=== PATIENT | female | born 1990 | race Caucasian/White ===

== ENCOUNTER 2017-02-28 21:56 | Emergency (ER) | payer OTHER ==
[~2017-02-28] VITALS: Ht 177.8 cm; Wt 94.8 kg
[~2017-02-28 21:56] MED LIST: ADVAI100I PO; CONTOUR1 XX; GLUC1000 PO; HYDRO25 PO; INSU-174; LANTUS2P SC; LINA290C PO; LITH450 PO; NOVOLOGP2 SQ; NOVOLOGSS SQ; NOVORP2 SQ; ONDAN4 PO; ONETMIS7; OXCA300 PO; PRAZ1 PO; PRED10 PO; QUET300 PO; ZOFR4TAB3 SL
[2017-02-28 22:07] VITALS: BP 134/69; PULSE 82; RESP 18; TEMP 98; O2SAT 98
--- NOTE | 2017-02-28 22:24 | PD ---
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 Patient reports history of IBS. Symptoms started today, and have progressively been worsening throughout the day. She has been following with an [employer] [employer], and has had an ultrasound that shows an IUP. She denies vaginal bleeding or discharge. History of cholecystectomy. No other abdominal surgeries. No vomiting. PFSH Past Medical History Asthma: Yes Bipolar Disorder: Yes Anxiety: Yes Depression: Yes Diabetes: Yes Respiratory: Yes Schizophrenia: Yes ?: LMP: 12/09/16 Dilation and Curettage (D&C): Yes (2013) Past Surgical History Cholecystectomy: Yes Social History Alcohol Use: Yes (RARELY) Tobacco Use: Yes (10/11 PPD) Substance Use: Yes Allergies-Medications (Allergen,Severity, Reaction): Coded Allergies: Depakote (Verified Allergy, Severe, AGGITATION, 02/28/17) Geodon (Verified Allergy, Severe, Hives, 02/04/16) Zoloft (Verified Allergy, Severe, Hives, 02/04/16) Uncoded Allergies: INVOKANA (Allergy, Severe, Hives, 02/04/16) Reported Meds & Prescriptions Reported Meds & Active Scripts Active Reported [place] ( Vitamin) 1 Tab Tab 1 Tab PO DAILY Valium (Diazepam) 5 Mg Tab 5 Mg PO DAILY PRN Novolin N Inj (Insulin Human NPH) 1,000 Unit/10 Ml Vial 10 Units SQ DAILY [place] Carbonate ER ([place] Carbonate) 450 Mg Tab 450 Mg PO BID Glimepiride 4 Mg Tab 4 Mg PO DAILY Take with breakfast or first main meal Metformin (Metformin HCl) 1,000 Mg Tab 1,000 Mg PO DAILY With a meal Review of Systems Except as stated in HPI: all other systems reviewed are Neg Physical Exam Narrative GENERAL: Well-developed, well-nourished, no acute distress. SKIN: Focused skin assessment warm/dry. HEAD: Atraumatic. Normocephalic. EYES: Pupils equal and round. No scleral icterus. No injection or drainage. ENT: Mucous membranes pink and moist. NECK: Trachea midline. No JVD. CARDIOVASCULAR: Regular rate and rhythm. RESPIRATORY: No accessory muscle use. Clear to auscultation. Breath sounds equal bilaterally. GASTROINTESTINAL: Abdomen soft, nondistended. Mild suprapubic tenderness without peritoneal signs. Rest of abdomen is soft and nontender. Normal bowel sounds. MUSCULOSKELETAL: No obvious deformities. No clubbing. No cyanosis. No edema. NEUROLOGICAL: Awake and alert. No obvious cranial nerve deficits. Motor grossly within normal limits. Normal speech. PSYCHIATRIC: Appropriate mood and affect; insight and judgment normal. Data Data Last Documented VS Vital Signs Date Time Temp Pulse Resp B/P Pulse Ox O2 Delivery O2 Flow Rate FiO2 02/28/17 22:18 82 18 02/28/17 22:07 98.0 134/69 98 Orders Urinalysis - C+S If Indicated (02/28/17 22:20) Labs Laboratory Tests Test 02/28/17 22:03 Urine Color STRAW Urine Turbidity CLEAR Urine pH 6.5 Urine Specific [place] 1.008 Urine Protein NEG mg/dL Urine Glucose (UA) NEG mg/dL Urine Ketones NEG mg/dL Urine Occult Blood NEG Urine Nitrite NEG Urine Bilirubin NEG Urine Leukocyte Esterase NEG Urine Squamous Epithelial 0-5 /hpf Cells Urine Bacteria FEW /hpf Microscopic Urinalysis Comment CULT NOT INDICATED MDM Medical Decision Making Medical Screen Exam Complete: Yes Emergency Medical Condition: Yes Differential Diagnosis Pelvic cramping, UTI, cystitis, ectopic , IBS, appendicitis unlikely, colitis, Narrative Course Vital signs show heart rate 82, blood pressure 134/69, pulse ox 98% on room air , oral temp of 98F. Patient is most concerned about the possibility of having a miscarriage, as this is her fourth with 3 prior miscarriages. Bedside transabdominal ultrasound was performed by me and shows an IUP with a heart rate of 174 bpm. Patient seems very reassured. She does have some mild suprapubic tenderness. She denies vaginal bleeding or discharge. I do not believe that there is an acute surgical process to warrant further imaging at this time. UA shows few bacteria. The patient be started on Macrobid. I believe that the patient is stable for discharge home with outpatient follow- up with her [employer] doctor this week. She has an appointment for this Tuesday in 2 days. She was informed on when to return to the emergency department patient verbalizes understanding and agreement with plan. Procedures Procedure Narrative Bedside transabdominal ultrasound: Using the curvilinear ultrasound probe, a bedside transabdominal ultrasound was performed by me and shows an IUP with heart beat 174 bpm. Diagnosis Primary Impression: Bacteriuria during Additional Impression: Abdominal pain Qualified Code: R10.9 - Abdominal pain, unspecified location Referrals: Account Advisor 2 days Additional Instructions: Follow-up with your [employer] doctor this week. Return to the emergency department for worsening symptoms or any other concerns. Scripts Nitrofurantoin Monohydrate Macrocrystals (Macrobid)100 Mg [id number] Mg PO BID 7 Days Ref 0 Prov:Sixto Romano MD 02/28/17 Disposition: 01 DISCHARGE HOME Condition: Stable Sixto Romano MD February 28, 2017 22:24
[2017-02-28] MEDS ORDERED: NOVONP2 SQ (22:32)
[2017-02-28] MEDS ORDERED: METF1000 PO (22:32)
[2017-02-28] MEDS ORDERED: LITH450T PO (22:32)
[2017-02-28] MEDS ORDERED: CALNTAB PO (22:32)
[2017-02-28] MEDS ORDERED: GLIM4TAB PO (22:32)
[2017-02-28] MEDS ORDERED: DIAZ5 PO (22:32)
[2017-02-28 22:34] LABS: BLOOD, URINE NEG (NEG); GLUCOSE,URINE NEG (NEG); KETONE, URINE NEG (NEG); NITRITE,URINE NEG (NEG); PH, URINE 6.5 (5.0-8.5)
[2017-02-28 22:43] LABS: BACTERIA, URINE FEW /hpf; SQUAMOUS EPITHELIAL CELL URINE 0-5 /hpf (0-5); URINE COLOR STRAW (YELLW/STRAW)
[2017-02-28 22:44] LABS: COMMENT (UR) CULT NOT INDICATED; CULTURE IF INDICATED CULT NOT INDICATED
[2017-02-28] MEDS ORDERED: MACR100C2 PO (22:50)
[2017-02-28] MEDS ORDERED: NITROFURANTOIN MONOHYD MACROCR 100 MG CAP PO ONE (23:00)
[2017-02-28 23:05] VITALS: BP 119/66; PULSE 68; RESP 16; O2SAT 98
== END 2017-02-28 23:08 | disposition home or self-care (01) ==
LOC: PHED 21:56
DX: O23.41 Unspecified infection of urinary tract in pregnancy, first trimester (principal); Z3A.12 12 weeks gestation of pregnancy
CPT/HCPCS: 81001; 99284

== ENCOUNTER 2018-06-30 15:16 | Inpatient (IN) ==
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
[2018-06-30 18:59] LABS: Baso # (Auto) 0.1 th/mm3 (0.0-0.2); Baso % (Auto) 0.4 % (0.0-2.0); Eos # (Auto) 0.2 th/mm3 (0.0-0.4); Eos % (Auto) 1.7 % (0.0-4.0); Hematocrit 41.6 % (35.0-46.0); Hemoglobin 14.4 gm/dL (11.6-15.3); Lymph # (Auto) 3.6 th/mm3 (1.0-4.8); Lymph % (Auto) 30.4 % (9.0-44.0); Mean Corpuscular HGB Conc 34.7 % (32.0-36.0); Mean Corpuscular Hemoglobin 31.7 pg (27.0-34.0); Mean Corpuscular Volume 91.3 fL (80.0-100.0); Mean Platelet Volume 9.4 fL (7.0-11.0); Mono # (Auto) 0.7 th/mm3 (0.0-0.9); Mono % (Auto) 6.1 % (0.0-8.0); Neut # (Auto) 7.3 th/mm3 (1.8-7.7); Neut % (Auto) 61.4 % (16.0-70.0); Platelet Count 228 th/mm3 (150-450); Red Blood Count 4.56 mil/mm3 (4.00-5.30); Red Cell Distribution Width 13.3 % (11.6-17.2); White Blood Count 11.9 th/mm3 (4.0-11.0)
[2018-06-30 19:21] LABS: Albumin 3.7 g/dL (3.4-5.0); Anion Gap 11 meq/L (5-15); Blood Urea Nitrogen 11 mg/dL (7-18); Calcium 8.8 mg/dL (8.5-10.1); Carbon Dioxide 20.2 meq/L (21.0-32.0); Chloride 106 meq/L (98-107); Glomerular Filtration Rate 85 mL/min (>89); Glucose,Random 170 mg/dL (74-106); Potassium 3.6 meq/L (3.5-5.1); Sodium 137 meq/L (136-145)
[2018-06-30 19:22] LABS: Aspartate Aminotransferase 14 U/L (15-37)
[2018-06-30 19:33] LABS: Alanine Aminotransferase 32 U/L (10-53); Alkaline Phosphatase 63 U/L (45-117); Thyroid Stimulating Hormone 0.625 uIU/mL (0.358-3.740); Total Protein 7.1 g/dL (6.4-8.2)
[2018-06-30 19:44] LABS: Amphetamine Screen,Urine Neg (Neg); Barbiturate Screen,Urine Neg (Neg); Cannabinoid Screen,Urine Neg (Neg); Cocaine Screen,Urine Neg (Neg)
[2018-06-30 19:51] LABS: Opiate Screen,Urine Neg (Neg)
[2018-07-01 09:27] LABS: Bilirubin,Urine Negative (Negative); Color,Urine Yellow (Yellw/Straw); Glucose,Urine (UA) Negative (Negative); Leukocyte Esterase,Urine Negative (Negative); Nitrite,Urine Negative (Negative); Urobilinogen,Urine 0.2 mg/dL (Less than 2)
[2018-07-01 09:32] LABS: Clarity,Urine Hazy (Clear)
[2018-07-01 09:34] LABS: Amorphous Sediment,Urine Rare /hpf; Bacteria,Urine Moderate /hpf; Mucus,Urine Moderate /lpf (Occasional); Squamous Epithelial Cell,Urine 6 /hpf (0-5)
[2018-07-01] MEDS ORDERED: Glimepiride 4 MG Tablet PO ONE (10:26)
[2018-07-01] MEDS ORDERED: Acetaminophen 325 MG Tablet PO ONE (12:55)
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
[2018-07-01] MEDS ORDERED: Aluminum/Magnesium/Simethacone Susp 30 ML UDC PO PRN (16:15)
[2018-07-01] MEDS ORDERED: Glimepiride 4 MG Tablet PO SCH (16:30)
[2018-07-01] MEDS ORDERED: Dextrose 50% in Water 50 ML Vial IV.PUSH PRN (20:35)
[2018-07-01] MEDS ORDERED: Non-Formulary Drug (Metformin [Metformin] 1,000 MG) PO SCH (21:00)
[2018-07-01] MEDS: Insulin NovoLOG Aspart Correctional Sugar Inj SQ SCH (22:02)
[2018-07-01] MEDS: Senna/Docusate Sodium 8.6/50 MG Tablet PO SCH (22:04)
[2018-07-02] MEDS: Insulin NovoLOG Aspart Correctional Sugar Inj SQ SCH ×5 (03:53→21:03)
[2018-07-02 08:52] LABS: Blood Urea Nitrogen 10 mg/dL (7-18); Calcium 8.7 mg/dL (8.5-10.1); Carbon Dioxide 22.7 meq/L (21.0-32.0); Cholesterol 192 mg/dL (120-200); Glomerular Filtration Rate Greater Than 89 mL/min (>89); Glucose,Random 236 mg/dL (74-106); Triglycerides 511 mg/dL (42-150)
[2018-07-02 09:01] LABS: Anion Gap 9 meq/L (5-15); Chloride 103 meq/L (98-107); Potassium 3.9 meq/L (3.5-5.1); Sodium 135 meq/L (136-145)
[2018-07-02 09:04] LABS: Chol/HDL Ratio 7.93 Ratio; HDL Cholesterol 24.2 mg/dL (40.0-60.0); Thyroid Stimulating Hormone 0.533 uIU/mL (0.358-3.740)
[2018-07-02] MEDS: Senna/Docusate Sodium 8.6/50 MG Tablet PO SCH ×2 (09:21→21:07)
[2018-07-02] MEDS: Glimepiride 4 MG Tablet PO SCH (09:22)
[2018-07-02] MEDS: diazePAM 5 MG Tablet PO SCH ×2 (09:23→11:22)
[2018-07-02] MEDS: Acetaminophen 325 MG Tablet PO PRN (11:23)
--- NOTE | 2018-07-02 11:56 | ECG ---
Date Performed: 07/02/2018 Time Performed: 09:43:43 PTAGE: 27 years EKG: Sinus rhythm NORMAL ECG Since the PREVIOUS TRACING , no significant change noted PREVIOUS TRACIN05/31/2018 11.21 DOCTOR: Paris Bower Interpretating Date/Time 07/05/2018 07:48:34
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
[2018-07-02 12:32] LABS: Hemoglobin A1c 8.4 % (4.3-6.0)
--- NOTE | 2018-07-02 16:53 | P.CONIM ---
History of Present Illness Service: [facility] Consult date: 07/02/18 Reason for Consult: medical management Primary Care Provider: Ridge Torres MD Chief Complaint: shortness of breath History of Present Illness: This is a pleasant 27 years old female with past medical history of asthma, diabetes, IBS, trigeminal neuralgia, schizophrenia, bipolar, PTSD, suicidal ideation and, history of drug overdose in 2008 for Depakote. Patient presented to the emergency department voluntarily for psychiatric evaluation, stated that she is having some suicidal thoughts and plan to "walk in front of a bus". She stated she attempted suicide in July 2009 by overdosing on Depakote and stated that he also does not work. Patient seen and evaluated sitting in his and her bedside, seems calm and cooperative, answers all the questions appropriately. Patient admitted at this time due to her thoughts of wanting to hurt others, and having some manic and unstable moods. Patient was admitted in the psychiatric department for evaluation and treatment. Medical team was consulted for medical management. Patient complains of some shortness of breath, states that she had a history of asthma and was using an inhaler, stated she was she woke up gasping for breath. No requesting for inhaler. Discussed with nursing. Patient denies any headache or dizziness, denies any chest pain or palpitation, denies any abdominal pain, nausea or vomiting, denies any diarrhea or constipation at this time although states that she had a history of IBS. Nurse discussed patient's complaint of burning on her groin site, patient stated that she had a blister that popped, states that she had a history of breath but denies any STDs. Patient also refused to get the groin area evaluated and seen. Patient stated it is her period today and it is kind a heavy so she do not want anything to look down there. Patient explained that she always have this blister coming and going all over her body, sometimes in the armpit or at the back of her neck. Patient also discussed her history of diabetes and was taking insulin, metformin, and glyburide at home. Patient denies any fever or chills. She denies any other complaints at this time. Review of Systems All other systems reviewed negative except as stated in HPI PMFSH - History History Provided By: Patient - Medical History Medical History: Medical History (Last Reviewed 07/02/18 @ 16:49 by BRANDIN Wren) Asthma Bipolar 1 disorder Diabetes IBS (irritable bowel syndrome) Miscarriage PTSD (post-traumatic stress disorder) Schizophrenia - Surgical History Surgical History: Surgical History (Last Reviewed 07/02/18 @ 16:49 by BRANDIN Wren) History of dilatation and curettage Hx of cholecystectomy Previous section - Social History I have reviewed the patient's Social History: Yes - Tobacco History Second Hand Smoke Exposure: Yes Tobacco Use In Past 30 Days: Yes Smoking Status: Heavy tobacco smoker Tobacco Type: Cigarettes - Alcohol History How Often Do You Have a Drink Containing Alcohol: Monthly or less - Substance Use History Substance History: Past History - Substance Use Type Marijuana Status: Active Route Used: Inhalation Reason for Use: Calm Down LSD, Mushrooms Status: Sustained Remission Route Used: By Mouth Reason for Use: Get High Comment: Stated she used from 11 yro to 19 yro Crack/Cocaine Status: Sustained Remission Route Used: Inhalation Reason for Use: Get High Comment: Patient has not used since 2011 Patient was in residential program in February 2012 for substance issues - Travel History Recent Travel in the [place] Within the Last 8 Weeks: No Recent Travel Out of the Country Within the Last 8 Weeks: No - Immunization History Tetanus Immunization: Unsure Hx Influenza Vaccine This Season: No Medications and Allergies Active Medications: Active Medications Acetaminophen (Tylenol) 650 mg PO Q4H PRN PRN Reason: PAIN 1-10 AND/OR FEVER >101F Last Admin: 07/02/18 11:23 Dose: 650 mg Al Hydrox/Mg Hydrox/Simethicone (Mag-Al Plus Susp Liq) 30 ml PO Q6H PRN PRN Reason: DYSPEPSIA Al Hydroxide/Mg Hydroxide (Milk Of Magnesia Liq) 30 ml PO Q12H PRN PRN Reason: Mild Constipation Albuterol (Ventolin Hfa Inh) 2 puff INH Q4H PRN PRN Reason: sob Cetirizine HCl (Zyrtec) 10 mg PO HS DENISSE Dextrose (D50w Vial) 50 ml IV.PUSH UNSCH PRN PRN Reason: PER HYPOGLYCEMIA PROTOCOL Diazepam (Valium) 5 mg PO DAILY DENISSE Last Admin: 07/02/18 11:22 Dose: 5 mg Fluticasone Propionate (Flonase Nasal [place]) 2 spray NASAL DAILY [facility] Fluticasone/Vilanterol (Breo Ellipta 100/25 Mcg Inh) 1 puff INH DAILY [facility] Glimepiride (Amaryl) 4 mg PO DAILY@0800 [facility] Last Admin: 07/02/18 09:22 Dose: 4 mg Glucagon (Glucagon Inj) 1 mg OTHER PRN PRN PRN Reason: for Hypoglycemia Protocol Insulin Aspart (Novolog Insulin [place] Sugar Inj) 0 unit SQ ACHS AND 3AM DENISSE; Protocol Last Admin: 07/02/18 11:45 Dose: 5 unit Riva Carbonate (Eskalith Sr) 600 mg PO BID [facility] Metformin HCl (Glucophage) 1,000 mg PO BIDPC [facility] Last Admin: 07/02/18 09:13 Dose: 1,000 mg Nicotine (Habitrol 21 Mg Patch.24 Hr) 1 patch T-DERMAL DAILY [facility] Last Admin: 07/02/18 11:47 Dose: 1 patch Patch Removal (Remove Old Patch) 1 each T-DERMAL HS [facility] Senna/Docusate Sodium ([place]-Colace) 1 tab PO BID [facility] Last Admin: 07/02/18 09:21 Dose: 1 tab Allergies Allergy/AdvReac Type Severity Reaction Status Date / Time divalproex sodium Allergy Severe AGGITATION Verified 06/30/18 19:09 sertraline Allergy Severe Hives Verified 06/30/18 19:09 ziprasidone Allergy Severe Hives Verified 06/30/18 19:09 canagliflozin [From Invokana] Allergy Rash Verified 06/30/18 19:09 Home Medications Medication Instructions Recorded Confirmed Type diazepam [Valium] 5 mg PO DAILY 06/30/18 06/30/18 History gabapentin 06/30/18 History glimepiride 4 mg PO QAM 06/30/18 06/30/18 History lithium carbonate 450 mg PO BID 06/30/18 06/30/18 History metformin 1,000 mg PO BID 06/30/18 06/30/18 History ziprasidone HCl [Geodon] 80 mg PO BID 06/30/18 06/30/18 History insulin NPH isoph U-100 human 15 unit SUB-Q BID 07/01/18 07/01/18 History [Novolin N NPH U-100 Insulin] insulin regular human [Humulin R 10 unit SUB-Q BID 07/01/18 07/01/18 History Regular U-100 Insuln] Exam Vital signs: Vital Signs 07/02/18 05:31 Temperature 97.5 F L Pulse Rate 88 Respiratory Rate 18 Blood Pressure 121/56 L Pulse Oximetry 97 Narrative: GENERAL: Heavyset female, well-developed, well-nourished, alert and oriented 3, in no apparent distress SKIN: Warm and dry. HEAD: Atraumatic. Normocephalic. EYES: Pupils equal and round. No scleral icterus. No injection or drainage. ENT: No nasal bleeding or discharge. Mucous membranes pink and moist. NECK: Trachea midline. No JVD. CARDIOVASCULAR: Regular rate and rhythm. RESPIRATORY: No accessory muscle use. Clear to auscultation. Breath sounds equal bilaterally. GASTROINTESTINAL: Abdomen obese soft, non-tender, nondistended. Hepatic and splenic margins not palpable. MUSCULOSKELETAL: Extremities without clubbing, cyanosis, or edema. No obvious deformities. NEUROLOGICAL: Awake and alert. No obvious cranial nerve deficits. Motor grossly within normal limits. Five out of 5 muscle strength in the arms and legs. Normal speech. PSYCHIATRIC: Appropriate mood and affect; insight and judgment unreliable. Cooperative Results - Labs CBC & Chem 7: 06/30/18 18:50 07/02/18 08:07 Labs: Laboratory Results - last 24 hr 07/01/18 07/01/18 07/01/18 16:00 16:30 19:18 Sodium Potassium Chloride Carbon Dioxide Anion Gap BUN Creatinine Estimated GFR POC Glucose 245 H 179 H Random Glucose Hemoglobin A1c Calcium Triglycerides Cholesterol LDL Cholesterol, Calc HDL Cholesterol Cholesterol/HDL Ratio TSH Riva 0.3 L 07/01/18 07/02/18 07/02/18 21:46 03:04 06:33 Sodium Potassium Chloride Carbon Dioxide Anion Gap BUN Creatinine Estimated GFR POC Glucose 346 H 235 H 217 H Random Glucose Hemoglobin A1c Calcium Triglycerides Cholesterol LDL Cholesterol, Calc HDL Cholesterol Cholesterol/HDL Ratio TSH Riva 07/02/18 07/02/18 07/02/18 08:01 08:07 08:10 Sodium 135 L Potassium 3.9 Chloride 103 Carbon Dioxide 22.7 Anion Gap 9 BUN 10 Creatinine 0.72 Estimated GFR Greater than 89 POC Glucose 244 H Random Glucose 236 H Hemoglobin A1c 8.4 H Calcium 8.7 Triglycerides 511 H Cholesterol 192 LDL Cholesterol, Calc HDL Cholesterol 24.2 L Cholesterol/HDL Ratio 7.93 TSH 0.533 Riva 07/02/18 07/02/18 11:21 14:18 Sodium Potassium Chloride Carbon Dioxide Anion Gap BUN Creatinine Estimated GFR POC Glucose 269 H 243 H Random Glucose Hemoglobin A1c Calcium Triglycerides Cholesterol LDL Cholesterol, Calc HDL Cholesterol Cholesterol/HDL Ratio TSH Riva Assessment and Plan - Assessment (1) Diabetes mellitus type 2 in obese Code(s): E11.69 - Type 2 diabetes mellitus with other specified complication; E66.9 - Obesity, unspecified Status: Acute (2) Asthma Code(s): J45.909 - Unspecified asthma, uncomplicated Status: Acute (3) Tobacco dependence Code(s): F17.200 - Nicotine dependence, unspecified, uncomplicated Status: Acute (4) IBS (irritable bowel syndrome) Code(s): K58.9 - Irritable bowel syndrome without diarrhea Status: Acute (5) Schizoaffective disorder, bipolar type Code(s): F25.0 - Schizoaffective disorder, bipolar type Status: Acute (6) PTSD (post-traumatic stress disorder) Code(s): F43.10 - Post-traumatic stress disorder, unspecified Status: Acute - Plan This is a pleasant 27 years old female with past medical history of asthma, diabetes, IBS, trigeminal neuralgia, schizophrenia, bipolar, PTSD, suicidal ideation and, history of drug overdose in 2008 for Depakote. Patient presented to the emergency department voluntarily for psychiatric evaluation, stated that she is having some suicidal thoughts and plan to "walk in front of a bus". She stated she attempted suicide in July 2009 by overdosing on Depakote and stated that he also does not work. Patient seen and evaluated sitting in his and her bedside, seems calm and cooperative, answers all the questions appropriately. Patient admitted at this time due to her thoughts of wanting to hurt others, and having some manic and unstable moods. Patient was admitted in the psychiatric department for evaluation and treatment. Medical team was consulted for medical management. Asthma Unspecified asthma, uncomplicated, Acute on chronic -Started on albuterol inhaler -Start on Breo, equivalent for Advair -Monitor respiratory status Diabetes mellitus type 2 in obese Type 2 diabetes mellitus with other specified complication; with Obesity, Acute on chronic -monitor blood glucose with Accu checks AC and HS -cover with Insulin Aspart sliding scale -continue home medications, metformin and glimepiride -hemoglobin A1c 8.4 -diabetic diet Hypertriglyceridemia, newly diagnosed/unknown history Likely related to uncontrolled diabetes/elevated blood sugar/obesity -Check liver function panel -Education on weight loss, lifestyle modification, diet, avoidance of concentrated sugars, alcohol, smoking cessation and strict glycemic control Postnasal drip -Add cetirizine and fluticasone spray -Monitor response Tobacco dependence Nicotine dependence, unspecified, uncomplicated, Acute -Start on nicotine patch for nicotine withdrawal this patient is a heavy smoker -Counseling on tobacco cessation IBS (irritable bowel syndrome) Irritable bowel syndrome without diarrhea, Acute on chronic -Monitor signs and symptoms Schizoaffective disorder, bipolar type/ PTSD (post-traumatic stress disorder) Acute on chronic - management by the Psychiatric Team DVT prophylaxis: Ambulatory Asthma Status: Acute Plan: Bronchodilator, Steroid taper PO Review home meds CXR (2) DM2 (diabetes mellitus, type 2) Status: Acute Plan: Home medications reviewed with patient Lantus 25 units at bedtime, metformin 1000 mg twice daily, Novolog 2 units with meals in addition to sliding scale Med list clarified Patient also recently on prednisone which may have even more hyperglycemia. This was given recently because of her trigeminal neuralgia We'll follow along closely to adjust as indicated based on glucose monitoring (3) Schizoaffective disorder Status: Acute Plan: Continue management as per psychiatry (patient recently on steroid- sparing which may have also exacerbated her psychiatric status, and personally because of her wheezing she will need to resume taking his) Code Status: Full code Discussed Condition With: Patient and nurse
[2018-07-02 18:01] LABS: Albumin 3.4 g/dL (3.4-5.0)
[2018-07-02 18:03] LABS: Total Protein 6.8 g/dL (6.4-8.2)
[2018-07-03] MEDS: Insulin NovoLOG Aspart Correctional Sugar Inj SQ SCH ×5 (03:06→20:34)
[2018-07-03 06:53] LABS: Anion Gap 9 meq/L (5-15); Blood Urea Nitrogen 12 mg/dL (7-18); Carbon Dioxide 23.3 meq/L (21.0-32.0); Chloride 106 meq/L (98-107); Glomerular Filtration Rate Greater Than 89 mL/min (>89); Glucose,Random 162 mg/dL (74-106); Potassium 3.3 meq/L (3.5-5.1); Sodium 138 meq/L (136-145)
[2018-07-03] MEDS: diazePAM 5 MG Tablet PO SCH (09:22)
[2018-07-03] MEDS: Senna/Docusate Sodium 8.6/50 MG Tablet PO SCH ×2 (09:23→20:31)
[2018-07-03] MEDS: Acetaminophen 325 MG Tablet PO PRN (09:32)
[2018-07-03] MEDS: Glimepiride 4 MG Tablet PO SCH (09:33)
--- NOTE | 2018-07-03 15:22 | P.TTN ---
- Patient Problems Problems: 1. Discharge planning 2. Medication compliance 3. Knowledge deficit 4. Lack of coping skills - Progress Toward Goals Provider Present: Dr. Swetha Rodriguez Provider Input: New pt with history of schizoeffective disorder, PTSD, and SI/HI , 10 month old child at home Nurse(s) Present: Pat Nurse Input: Pt is cooperative and compliant Psychiatric Counselors Present: Alyssa Evans LCSW, Ector Corona Jr., [facility], Rhonda Alanis, [facility], Other Group Spec/RT/OT/MATUTE Present: GIOVANI Carr, Andre Zuluaga, OT Group Spec/RT/OT/MATUTE Input: Pt has not attended groups/seclusive to self. Willl continue to encourage - Documentation Teaching Recipient: Patient
--- NOTE | 2018-07-03 15:50 | P.PNIM ---
Subjective Interval history: follow up asthma, diabetes and adjustment disorder Patient stated breathing better today, had her inhaler last night and feels much better. patient c/o of hot/cold sweats, however mentioned is is also her period and more likely related to it. Also complaints of body odor and odor on her perianal discharge, with her period. Patient denies any headache or dizziness, denies any chest pain or shortness of breath, denies any pain, abdominal pain, nausea or vomiting. Patient denies any fever or chills. Patients discu Physical Exam Vital signs: Vital Signs 07/02/18 17:26 07/02/18 17:35 07/03/18 05:19 Temperature 98.7 F 97.7 F 97.5 F L Pulse Rate 99 H 88 67 Respiratory Rate Blood Pressure 120/89 140/78 92/50 L Pulse Oximetry 99 98 95 Intake & Output 07/02/18 07/03/18 07/03/18 18:59 06:59 18:59 Weight 117 kg 119.2 kg Other: Weight On Admission 117 kg Narrative: GENERAL: pleasant, heavyset young lady, well developed, well nourished with no apparent distress SKIN: Warm and dry. HEAD: Atraumatic. Normocephalic. EYES: Pupils equal and round. No scleral icterus. No injection or drainage. ENT: No nasal bleeding or discharge. Mucous membranes pink and moist. NECK: Trachea midline. No JVD. CARDIOVASCULAR: Regular rate and rhythm. RESPIRATORY: No accessory muscle use. Clear to auscultation. Breath sounds equal bilaterally. GASTROINTESTINAL: Abdomen obese soft, non-tender, nondistended. Hepatic and splenic margins not palpable. MUSCULOSKELETAL: Extremities without clubbing, cyanosis, or edema. No obvious deformities. NEUROLOGICAL: Awake and alert. No obvious cranial nerve deficits. Motor grossly within normal limits. Five out of 5 muscle strength in the arms and legs. Normal speech. PSYCHIATRIC: Appropriate mood and affect; insight and judgment normal. Results - Labs CBC & Chem 7: 06/30/18 18:50 07/03/18 05:47 Laboratory Results - last 24 hr 07/02/18 07/02/18 07/02/18 08:07 16:29 19:51 Sodium Potassium Chloride Carbon Dioxide Anion Gap BUN Creatinine Estimated GFR POC Glucose 170 H 204 H Random Glucose Calcium Total Bilirubin 0.3 Direct Bilirubin 0.1 Indirect Bilirubin 0.2 AST 16 ALT 31 Alkaline Phosphatase 65 Total Protein 6.8 Albumin 3.4 07/03/18 07/03/18 07/03/18 03:03 05:47 05:53 Sodium 138 Potassium 3.3 L Chloride 106 Carbon Dioxide 23.3 Anion Gap 9 BUN 12 Creatinine 0.59 Estimated GFR Greater than 89 POC Glucose 152 H 187 H Random Glucose 162 H Calcium 9.0 Total Bilirubin Direct Bilirubin Indirect Bilirubin AST ALT Alkaline Phosphatase Total Protein Albumin 07/03/18 13:52 Sodium Potassium Chloride Carbon Dioxide Anion Gap BUN Creatinine Estimated GFR POC Glucose 288 H Random Glucose Calcium Total Bilirubin Direct Bilirubin Indirect Bilirubin AST ALT Alkaline Phosphatase Total Protein Albumin Microbiology 06/30/18 19:18 Clean Catch Urine Urine Culture - Final 50-100,000 cfu/mL mixed gram positive edi (probable contaminants) Assessment and Plan - Assessment (1) Diabetes mellitus type 2 in obese Code(s): E11.69 - Type 2 diabetes mellitus with other specified complication; E66.9 - Obesity, unspecified Status: Acute (2) Asthma Code(s): J45.909 - Unspecified asthma, uncomplicated Status: Acute (3) Tobacco dependence Code(s): F17.200 - Nicotine dependence, unspecified, uncomplicated Status: Acute (4) IBS (irritable bowel syndrome) Code(s): K58.9 - Irritable bowel syndrome without diarrhea Status: Acute (5) Schizoaffective disorder, bipolar type Code(s): F25.0 - Schizoaffective disorder, bipolar type Status: Acute (6) PTSD (post-traumatic stress disorder) Code(s): F43.10 - Post-traumatic stress disorder, unspecified Status: Acute - Plan This is a pleasant 27 years old female with past medical history of asthma, diabetes, IBS, trigeminal neuralgia, schizophrenia, bipolar, PTSD, suicidal ideation and, history of drug overdose in 2008 for Depakote. Patient presented to the emergency department voluntarily for psychiatric evaluation, stated that she is having some suicidal thoughts and plan to "walk in front of a bus". She stated she attempted suicide in July 2009 by overdosing on Depakote and stated that he also does not work. Patient seen and evaluated sitting in his and her bedside, seems calm and cooperative, answers all the questions appropriately. Patient admitted at this time due to her thoughts of wanting to hurt others, and having some manic and unstable moods. Patient was admitted in the psychiatric department for evaluation and treatment. Medical team was consulted for medical management. Asthma Unspecified asthma, uncomplicated, Acute on chronic -no shortness of breath, no wheezing -continue albuterol inhaler -continue Breo, equivalent for Advair -Monitor respiratory status Diabetes mellitus type 2 in obese Type 2 diabetes mellitus with other specified complication; with Obesity, Acute on chronic -monitor blood glucose with Accu checks AC and HS -cover with Insulin Aspart sliding scale -restart on home dose of Novolin N -continue home medications, metformin and glimepiride -hemoglobin A1c 8.4 -diabetic diet Hypertriglyceridemia, newly diagnosed/unknown history Likely related to uncontrolled diabetes/elevated blood sugar/obesity -Check liver function panel -Education on weight loss, lifestyle modification, diet, avoidance of concentrated sugars, alcohol, smoking cessation and strict glycemic control Postnasal drip -symptoms improved -Add cetirizine and fluticasone spray -Monitor response Tobacco dependence Nicotine dependence, unspecified, uncomplicated, Acute -nicotine patch discontinued for nightmares adverse reaction -Counseling on tobacco cessation IBS (irritable bowel syndrome) Irritable bowel syndrome without diarrhea, Acute on chronic -Monitor signs and symptoms Schizoaffective disorder, bipolar type/ PTSD (post-traumatic stress disorder) Acute on chronic - management by the Psychiatric Team DVT prophylaxis: Ambulatory Code Status: full code Discussed Condition With: patient and nurse
[2018-07-03] MEDS: clonazePAM 0.5 MG Tablet PO SCH (20:30)
--- NOTE | 2018-07-03 22:55 | P.PNPSY ---
Subjective Chief Complaint: "I think I'm manic again" Remarks: Patient seen for follow, chart reviewed. Discussion nursing staff reported the patient denying suicide ideations and slept well. Patient was found ambulating on the unit noted B, cooperative. Patient states that she had poor sleep less evening reporting having had nightmares. Patient states continued to feel depressed, continue with suicide ideations, worried about her . She states that I am not helping as much and was previously doing better on clonazepam. Patient denying any homicidal ideations at this time stating that she had thoughts of just "hitting him" referring to her . Patient agrees to starting bupropion to assist with depressive symptoms Review of Systems All other systems reviewed negative except as stated in HPI Mental Status Examination Appearance: Appropriate Consciousness: Alert Orientation: x4 Motor Activity: Normal gait Speech: Rapid Language: Adequate Fund of Knowledge: Adequate Attention and Concentration: Adequate Memory: Unremarkable Mood: Sad Affect: Labile Thought Process & Associations: Logical, Tangential (mild) Thought Content: Appropriate, Preoccupations Hallucination Type: None Delusion Type: None Suicidal Ideation: Yes Suicidal Plan: No Suicidal Intention: No Homicidal Ideation: No Homicidal Plan: No Homicidal Intention: No Insight: Fair Judgment: Impulsive Assessment and Plan - Assessment (1) Schizoaffective disorder, bipolar type Code(s): F25.0 - Schizoaffective disorder, bipolar type Status: Acute (2) PTSD (post-traumatic stress disorder) Code(s): F43.10 - Post-traumatic stress disorder, unspecified Status: Acute - Plan Plan: Patient continued with depressed mood along with continue suicide ideations. Patient no longer endorsing nursing any homicidal ideations. We will continue with current treatment. We will add Wellbutrin SR 100 mg p.o. twice daily for depression symptoms. I will discontinue Valium and start clonazepam 0.5 mg p.o. twice daily for anxiety. Continue rest of medications. Continue to monitor mood and behavior. Discharge planning a progress. Justification for Continued Inpatient Stay: At risk of further decompensation at lower level of care.
[2018-07-04] MEDS: Insulin NovoLOG Aspart Correctional Sugar Inj SQ SCH ×5 (03:16→20:39)
[2018-07-04 06:25] LABS: Anion Gap 10 meq/L (5-15); Blood Urea Nitrogen 13 mg/dL (7-18); Calcium 8.8 mg/dL (8.5-10.1); Carbon Dioxide 22.8 meq/L (21.0-32.0); Chloride 106 meq/L (98-107); Glomerular Filtration Rate Greater Than 89 mL/min (>89); Glucose,Random 144 mg/dL (74-106); Potassium 3.4 meq/L (3.5-5.1); Sodium 139 meq/L (136-145)
[2018-07-04] MEDS: Glimepiride 4 MG Tablet PO SCH (08:49)
[2018-07-04] MEDS: clonazePAM 0.5 MG Tablet PO SCH ×2 (08:50→20:34)
[2018-07-04] MEDS: Senna/Docusate Sodium 8.6/50 MG Tablet PO SCH (08:52)
[2018-07-04] MEDS ORDERED: Senna/Docusate Sodium 8.6/50 MG Tablet PO PRN (10:20)
[2018-07-04] MEDS: buPROPion 100 MG ER 12 HR Tablet PO SCH ×2 (11:44→20:34)
--- NOTE | 2018-07-04 16:53 | P.PN ---
Subjective Interval history: Follow-up visit hypokalemia, asthma, DM. Patient seen and examined today. Complains of cough but not worsening. Denies any wheezing, shortness of breath. Patient also complaining that she wants more food and she could not get it. States that she spoke with a dietitian which will put her on 2200 ADA instead of 1800. Discussed with patient importance of diet compliance especially with diabetes. Verbalized understanding. Complains of diarrhea. States that she has IBS constipation/diarrhea. Denies pain and discomfort. Denies chest pain, palpitations, headaches, dizziness. Denies fevers, chills. Denies nausea, vomiting. Physical Exam Vital signs: Vital Signs 07/03/18 17:38 07/04/18 05:34 Temperature 98.5 F 97.6 F Pulse Rate 83 68 Respiratory Rate 16 Blood Pressure 149/82 H 95/53 L Pulse Oximetry 97 92 L Narrative: GENERAL: This is a obese young patient, in no apparent distress. SKIN: Warm and dry HEENT: Normocephalic. Pupils equal round and reactive. Nose without bleeding. Airway patent. NECK: Trachea midline. CARDIOVASCULAR: Regular rate and rhythm without murmurs, gallops, or rubs. RESPIRATORY: Breath sounds equal bilaterally. No wheezes, rales, or rhonchi. GASTROINTESTINAL: Abdomen soft, non-tender, obese. Bowel Sounds normoactive x4. MUSCULOSKELETAL: Extremities without clubbing, cyanosis, or edema. NEUROLOGICAL: Awake and alert. Oriented to time, place, person. No focal neuro deficit. Moves all extremities. Normal speech. Results - Labs CBC & Chem 7: 06/30/18 18:50 07/04/18 05:22 Laboratory Results - last 24 hr 07/03/18 07/03/18 07/04/18 17:46 19:42 03:13 Sodium Potassium Chloride Carbon Dioxide Anion Gap BUN Creatinine Estimated GFR POC Glucose 195 H 215 H 120 H Random Glucose Calcium 07/04/18 07/04/18 07/04/18 05:22 06:22 11:25 Sodium 139 Potassium 3.4 L Chloride 106 Carbon Dioxide 22.8 Anion Gap 10 BUN 13 Creatinine 0.60 Estimated GFR Greater than 89 POC Glucose 148 H 198 H Random Glucose 144 H Calcium 8.8 07/04/18 16:37 Sodium Potassium Chloride Carbon Dioxide Anion Gap BUN Creatinine Estimated GFR POC Glucose 139 H Random Glucose Calcium Assessment and Plan - Assessment (1) Diabetes mellitus type 2 in obese Code(s): E11.69 - Type 2 diabetes mellitus with other specified complication; E66.9 - Obesity, unspecified Status: Acute (2) Asthma Code(s): J45.909 - Unspecified asthma, uncomplicated Status: Acute (3) Tobacco dependence Code(s): F17.200 - Nicotine dependence, unspecified, uncomplicated Status: Acute (4) IBS (irritable bowel syndrome) Code(s): K58.9 - Irritable bowel syndrome without diarrhea Status: Acute (5) Schizoaffective disorder, bipolar type Code(s): F25.0 - Schizoaffective disorder, bipolar type Status: Acute (6) PTSD (post-traumatic stress disorder) Code(s): F43.10 - Post-traumatic stress disorder, unspecified Status: Acute - Plan 27 years old female with past medical history of asthma, diabetes, IBS, trigeminal neuralgia, schizophrenia, bipolar, PTSD, suicidal ideation and, history of drug overdose in 2008 for Depakote. Patient presented to the emergency department voluntarily for psychiatric evaluation, stated that she is having some suicidal thoughts and plan to "walk in front of a bus". She is unable to do inpatient psychiatry and further evaluation. Consulted for assistance with medical management. Schizoaffective disorder, bipolar type/ PTSD (post-traumatic stress disorder) Acute on chronic -management by the Psychiatric Team Asthma Unspecified asthma, uncomplicated, Acute on chronic -no shortness of breath, no wheezing -continue albuterol inhaler -continue Breo, equivalent for Advair Diabetes mellitus type 2 in obese Type 2 diabetes mellitus with other specified complication; with Obesity, Acute on chronic -monitor blood glucose with Accu checks AC and HS -Insulin sliding scale -restart on home dose of Novolin N -continue home medications, metformin and glimepiride -hemoglobin A1c 8.4 -diabetic diet 2200 ADA Hypertriglyceridemia, newly diagnosed/unknown history Likely related to uncontrolled diabetes/elevated blood sugar/obesity -Education on weight loss, lifestyle modification, diet, avoidance of concentrated sugars, alcohol, smoking cessation and strict glycemic control -Consider fish oil Tobacco dependence Postnasal drip -Cetirizine and fluticasone spray -nicotine patch discontinued for nightmares adverse reaction -Counseling on tobacco cessation IBS (irritable bowel syndrome) Irritable bowel syndrome without diarrhea, Acute on chronic -Start acidophilus for now -Referred to GI and outpatient DVT prophylaxis Ambulatory Stable from Hospitalist standpoint. We will sign off. Reconsult as needed. Thank you. Code Status: Full code Discussed Condition With: Patient, nursing Discharge Planning: DC disposition by primary team
--- NOTE | 2018-07-04 18:08 | P.DIET ---
Nutritional Evaluation Type of nutrition evaluation: initial Nutrition consult regarding: Diet Evaluation Nutrition screening: [facility] Screening comments: 07/04/18 [facility] requesting larger portion-h/o DM Subjective Subjective Comments: Pt visited in the dayroom after lunch today. Pt says she is hungry and needs more food. Pt reports that prior to this admission, she was drinking 2-Liters of Regular Soda daily. Discussed CHO content of soda and the affect of Regular Soda on Glucose and TG. Pt is known to me from previous admission here. Objective - Diagnosis Adjustment DO w/Depressed Mood - Objective [place] body weight: 75.5 kg % IBW: 155 Body Weight Used for Calculations: IBW (75.5kg(166-lb)) Energy Needs - Lower Range (kCal/kg): 27 Energy Needs - Upper Range (kCal/kg): 32 Lower Limit kCal/kg (kCals): 2,039 Upper Limit kCal/kg (kCals): 2,416 Lower Limit Protein Factor (Grams per Kg): 1.0 Upper Limit Protein Factor (Grams per Kg): 1.3 Lower Protein Needs (Protein): 76 Upper Protein Needs (Protein): 98 Dietitian Reviewed in Medical Record: Current diet, Curent medications, Intake & Output, Labs, Medical history Diet Order: Oral Diet Intake Amount: Excellent 90%+ Objective Comments: PMH Includes: Asthma, Bipolar 1 DO, DM, IBS, Miscarriage, PTSD, Schizophrenia Labs include: Random Glucose 144, POC Glucose 120, 148, 198, 139; A1C 8.4, Lipid Profile: TG 511, HDL 24.2, Chol/HDL ratio 7.93 Meds include: Wellbutrin, Klonopin, amaryl, Novolin NPH 15U BID, Novolog SSI, Metformin, [place] Assessment Assessment: Pt's diet order at time of pt visit. Agree w/Current Diet Order for . Noted pt w/a TG of >500 and she reports drinking 2-Liters of Regular soda daily. Also Noted pt w/an HDL of 24.2 and is currently not on a statin. Provide pt w/double protein and low CHO "free" foods w/meals. Labs reviewed- monitor glucose. Dietitian will follow. Recommendations: 1. Agree w/Current Diet Order for 2. Noted pt w/a TG of >500 and she reports drinking 2-Liters of Regular soda daily 3. Noted pt w/an HDL of 24.2 and is currently not on a statin 4. Provide pt w/double protein and low CHO "free" foods w/meals 5. Dietitian will follow Dietitian to Monitor: Lab values, Glucose level, Intake & Output, Weight change , PO Intake
[2018-07-04] MEDS: Lactobacillus Acidophilus/L. Spores Tablet PO SCH (20:34)
[2018-07-04] MEDS: Acetaminophen 325 MG Tablet PO PRN (21:33)
--- NOTE | 2018-07-04 23:28 | P.PNPSY ---
Subjective Chief Complaint: "I think I'm manic again" Remarks: Patient seen for follow up; chart reviewed. Discussion with nursing staff reported patient sleeping most of the morning, denied any SI. Patient was found lying on hospital bed, states having had difficutly with sleep last evening and feeling tired today. She reports continued depressed mood but denies any SI today. Review of Systems All other systems reviewed negative except as stated in HPI Mental Status Examination Appearance: Appropriate Consciousness: Alert Orientation: x4 Motor Activity: Normal gait Speech: Rapid Language: Adequate Fund of Knowledge: Adequate Attention and Concentration: Adequate Memory: Unremarkable Mood: Sad Affect: Irritable Thought Process & Associations: Logical, Tangential (mild) Thought Content: Appropriate, Preoccupations Hallucination Type: None Delusion Type: None Suicidal Ideation: Yes (denies today) Suicidal Plan: No Suicidal Intention: No Homicidal Ideation: No Homicidal Plan: No Homicidal Intention: No Insight: Fair Judgment: Impulsive Assessment and Plan - Assessment (1) Schizoaffective disorder, bipolar type Code(s): F25.0 - Schizoaffective disorder, bipolar type Status: Acute (2) PTSD (post-traumatic stress disorder) Code(s): F43.10 - Post-traumatic stress disorder, unspecified Status: Acute - Plan Plan: Patient with continued depressed mood but denyng any SI. Continue current treatment, continue to monitor mood and behavior. Discharge planning in progress. Justification for Continued Inpatient Stay: At risk for further decompensation at lower level of care.
[2018-07-05] MEDS: Insulin NovoLOG Aspart Correctional Sugar Inj SQ SCH ×5 (03:10→20:51)
[2018-07-05] MEDS: Lactobacillus Acidophilus/L. Spores Tablet PO SCH ×2 (08:46→20:49)
[2018-07-05] MEDS: Glimepiride 4 MG Tablet PO SCH (08:46)
[2018-07-05] MEDS: clonazePAM 0.5 MG Tablet PO SCH ×2 (08:46→20:49)
[2018-07-05] MEDS: buPROPion 100 MG ER 12 HR Tablet PO SCH ×2 (08:47→20:49)
--- NOTE | 2018-07-05 16:34 | P.PNPSY ---
Subjective Chief Complaint: "I think I'm manic again" Remarks: Patient seen and kincaid with nurse Yovani, chart reviewed, labs reviewed lithium level on admission of 0.2. We will repeat lithium blood level tomorrow morning. Patient complains of some insomnia we will discontinue the Benadryl will add Atarax 50 mg at at bedtime. Patient otherwise is alert oriented somewhat intense speech is somewhat rapid and pressured. She is otherwise compliant with her medications. Otherwise for now continue treatment. She does deny voices or visions at the present time Review of Systems All other systems reviewed negative except as stated in HPI Mental Status Examination Appearance: Appropriate Consciousness: Alert Orientation: x4 Motor Activity: Normal gait Speech: Rapid Language: Adequate Fund of Knowledge: Adequate Attention and Concentration: Adequate Memory: Unremarkable Mood: Sad Affect: Irritable Thought Process & Associations: Logical, Tangential (mild) Thought Content: Appropriate, Preoccupations Hallucination Type: None Delusion Type: None Suicidal Ideation: Yes (denies today) Suicidal Plan: No Suicidal Intention: No Homicidal Ideation: No Homicidal Plan: No Homicidal Intention: No Insight: Fair Judgment: Impulsive Assessment and Plan - Assessment (1) Schizoaffective disorder, bipolar type Code(s): F25.0 - Schizoaffective disorder, bipolar type Status: Acute (2) PTSD (post-traumatic stress disorder) Code(s): F43.10 - Post-traumatic stress disorder, unspecified Status: Acute - Plan Plan: Patient complains some persistent insomnia. Consult was somewhat elevated mixed mood. Will check lithium level over in a.m. we will discontinue Benadryl and add Atarax at at bedtime Justification for Continued Inpatient Stay: At this time patient would decompensate a place to a lower level of care Discharge Planning: To be determined probable return home with family
[2018-07-06] MEDS: Insulin NovoLOG Aspart Correctional Sugar Inj SQ SCH ×5 (03:34→21:53)
[2018-07-06] MEDS: clonazePAM 0.5 MG Tablet PO SCH ×2 (09:36→21:52)
[2018-07-06] MEDS: buPROPion 100 MG ER 12 HR Tablet PO SCH ×2 (09:36→21:53)
[2018-07-06] MEDS: Lactobacillus Acidophilus/L. Spores Tablet PO SCH ×2 (09:37→21:52)
[2018-07-06] MEDS: Glimepiride 4 MG Tablet PO SCH (09:37)
--- NOTE | 2018-07-06 14:18 | P.PNPSY ---
Subjective Chief Complaint: "I think I'm manic again" Remarks: Patient seen and kincaid with medical student Haritha and nurse Michelle. Chart reviewed. Patient compliant medication. Patient remains somewhat intense today with intense eye contact. Mood remains somewhat labile with increased range and intensity. She states the Atarax did not help her sleep at all. Though she denied any significant nightmares last night. She states she slept well on trazodone in the past with doses up to 350 mg. I will discontinue the Atarax start patient on trazodone 100 mg at at bedtime. Patient's lithium level drawn this morning was 0.8 we will continue lithium no change in dose Review of Systems All other systems reviewed negative except as stated in HPI Mental Status Examination Appearance: Appropriate Consciousness: Alert Orientation: x4 Motor Activity: Normal gait Speech: Rapid Language: Adequate Fund of Knowledge: Adequate Attention and Concentration: Adequate Memory: Unremarkable Mood: Sad (Improving) Affect: Other (Good range and intensity) Thought Process & Associations: Logical, Tangential (mild) Thought Content: Appropriate, Preoccupations (Decreasing) Hallucination Type: None Delusion Type: None Suicidal Ideation: Yes (denies today) Suicidal Plan: No Suicidal Intention: No Homicidal Ideation: No Homicidal Plan: No Homicidal Intention: No Insight: Fair Judgment: Impulsive Assessment and Plan - Assessment (1) Schizoaffective disorder, bipolar type Code(s): F25.0 - Schizoaffective disorder, bipolar type Status: Acute (2) PTSD (post-traumatic stress disorder) Code(s): F43.10 - Post-traumatic stress disorder, unspecified Status: Acute - Plan Plan: Patient's kari and depression are slowly lifting, she medication adjustments above. Patient's lithium level 8.8 Justification for Continued Inpatient Stay: At this time patient would decompensate a place to a lower level of care Discharge Planning: To be determined probable return home
[2018-07-06] MEDS ORDERED: traZODone 100 MG Tablet PO SCH (21:00)
[2018-07-07] MEDS: Insulin NovoLOG Aspart Correctional Sugar Inj SQ SCH ×3 (02:09→12:31)
[2018-07-07 05:19] VITALS: BP 128/60; PULSE 77; RESP 17; TEMP 97.7; O2SAT 95
[2018-07-07] MEDS: Lactobacillus Acidophilus/L. Spores Tablet PO SCH (08:56)
[2018-07-07] MEDS: clonazePAM 0.5 MG Tablet PO SCH (08:56)
[2018-07-07] MEDS: buPROPion 100 MG ER 12 HR Tablet PO SCH (08:57)
[2018-07-07] MEDS: Glimepiride 4 MG Tablet PO SCH (08:57)
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
== END 2018-07-07 16:35 | disposition home or self-care (01) ==
LOC: NEPD 15:16 → NEDA 07-01 17:18 → H260 07-01 18:07
PROVIDERS: ADMIT Student in an Organized Health Care Education/Training Program; ATTEND Student in an Organized Health Care Education/Training Program